=== PATIENT | female | born 1990 | race Caucasian/White ===

== ENCOUNTER → 2018-05-14 14:22 | Outpatient (CLI) | payer OTHER, SELFPAY ==
--- NOTE | 2018-05-14 | DI.US.S_ITS ---
PROCEDURE: US THYROID INDICATIONS: HYPOTHYROIDISM TECHNIQUE: Real-time scanning was performed of the thyroid gland, with image documentation. COMPARISON: None. FINDINGS: Right: Thyroid lobe measures 5.0 x 1.7 x 1.3 cm, and is diffusely heterogeneous in echotexture. Left: Thyroid lobe measures 5.1 x 1.2 x 1.4 cm, and is diffusely heterogeneous in echotexture. Isthmus: 3.0 mm thick. Impression: Diffusely heterogeneous thyroid bilaterally. Thyroiditis cannot be excluded. Dictated by: Augustus [facility] Interpreted: Thais Pacheco MD on 05/15/2018 at 13:34 Approved by: Thais Pacheco MD, PhD on 05/15/2018 at 14:47
== END ==
PROVIDERS: PCP Family Medicine; Visit Provider Family Medicine
DX: E03.9 Hypothyroidism, unspecified (principal)
CPT/HCPCS: 76536

== ENCOUNTER → 2021-07-23 12:15 | Outpatient (CLI) | payer OTHER, SELFPAY ==
--- NOTE | 2021-07-23 | DI.US.S_ITS ---
PROCEDURE: US OB >= 14 WEEKS FETUS INDICATIONS: ANATOMY OUTSIDE/PRIOR DATING DATA: Last menstrual period (LMP): 03/10/2021 LMP-based estimated date of delivery ([facility]): 12/15/2021. First dating scan (date and location): 07/23/2021. Estimated date of delivery ([facility]) from first dating scan: 12/13/2021. The calculations are made using the ultrasound [facility] of 12/13/2021. TECHNIQUE: Real-time scanning was performed of the fetus, with image documentation and biometric measurements. COMPARISON: None. FINDINGS: General: A single living intrauterine gestation is present. Presentation: Breech. Placenta: Placental position is posterior , without previa. Amniotic fluid index: 14.1 cm, normal range is 5-24 cm. heart rate: 133 beats per minute. Maternal cervical canal: 4.0 cm long. Normal lower limit is 2.5 cm. biometrics: Biparietal diameter: 19 weeks 1 day Head circumference: 19 weeks 5 days Abdominal circumference: 19 weeks 5 days Femur length: 19 weeks 6 days Clinically estimated gestational age: 19 weeks 2 days Composite gestational age from present scan: 19 weeks 4 days Estimated weight and percentile: 311 g, 73rd percentile Anatomic survey: Neuro: Ventricles are non-dilated at less than 10 mm. Cisterna magna is normal at 3-11 mm. Cerebellum is normal in size and morphology. Nuchal skin fold: Normal at less than 6 mm between 14-21 weeks gestational age. Face: Nose and lips, facial profile are normal. Spine: No evidence for spina bifida. Heart: 4-chambered heart is present, with normal ventricular outflow tracts. Diaphragm: Diaphragm is intact. Stomach: Left-sided stomach is present. Kidneys: No hydronephrosis. Normal is less than 5 mm in 2nd trimester, less than 7 mm in 3rd trimester. Cord: 3-vessel cord has orthotopic insertion. Marginal placental cord insertion with the insertion site 1.5 cm from the placental margin. Bladder: Normal in size. Extremities: All 4 extremities identified. IMPRESSION: 1. 19 week 4 day single living IUP. 2. Normal anatomic survey. 3. Marginal placental cord insertion. We strive to produce accurate, complete, and clear reports of imaging services. To assist us in improving patient care, this report was composed using standard report templates and voice recognition software. Therefore, it may contain abnormal punctuation, insertions and/or omissions. Occasional wrong-word or sound-alike substitutions may occur. Though we review the report and make efforts to correct it, we do recommend that the report be read carefully in proper context to recognize any text inaccuracies. Dictated by: Augustus ARIZMENDI Interpreted: Niranjan Tovar MD on 07/23/2021 at 13:22 Transcribed by: MINO on 07/23/2021 at 13:24 Approved by: Niranjan Tovar M.D. on 07/23/2021 at 13:29
== END ==
PROVIDERS: PCP Family Medicine; Referring Provider Midwife; Visit Provider Midwife
DX: Z34.02 Encounter for supervision of normal first pregnancy, second trimester (principal); Z3A.19 19 weeks gestation of pregnancy
CPT/HCPCS: 76811

== ENCOUNTER → 2025-02-21 12:58 | Outpatient (CLI) | payer BC, SELFPAY ==
[2025-02-21 14:05] LABS: Free T3, Triiodothyronine Free 4.53 pg/mL (2.77-5.27)
[2025-02-21 14:55] LABS: Vitamin D 25 Hydroxy (D3) 78.3 ng/mL (30.0-100.0)
== END ==
PROVIDERS: PCP Naturopath; Referring Provider Naturopath; Visit Provider Naturopath
DX: E03.9 Hypothyroidism, unspecified (principal); E55.9 Vitamin D deficiency, unspecified; N94.6 Dysmenorrhea, unspecified
CPT/HCPCS: 36415; 82306; 84481